=== PATIENT | male | born 1965 | race Caucasian/White ===

== ENCOUNTER 2017-05-03 04:48 | Emergency (ER) | payer MEDICARE ==
[~2017-05-03] VITALS: Ht 185.4 cm; Wt 76.7 kg
[2017-05-03 04:51] VITALS: BP 126/68
[2017-05-03] MEDS ORDERED: ONDANSETRON ODT 4 MG ONE (05:28)
[2017-05-03] MEDS ORDERED: HYDROmorphone 1 MG/ML, 1ML ONE (05:28)
[2017-05-03] MEDS ORDERED: HYDROmorphone 1 MG/ML, 1ML IM ONE (05:30)
[2017-05-03] MEDS ORDERED: ONDANSETRON ODT 4 MG PO ONE (05:30)
== END 2017-05-03 06:56 | disposition home or self-care (01) ==
LOC: ED 05:21
DX: S33.5XXA Sprain of ligaments of lumbar spine, initial encounter (principal); F17.200 Nicotine dependence, unspecified, uncomplicated; M54.16 Radiculopathy, lumbar region; W11.XXXA Fall on and from ladder, initial encounter; Y93.89 Activity, other specified; Y92.009 Unspecified place in unspecified non-institutional (private) residence as the place of occurrence of the external cause; Y99.9 Unspecified external cause status
CPT/HCPCS: 72110; 72190; 96372; 99284; J1170; Q0162

== ENCOUNTER 2018-03-28 14:50 | Emergency (ER) | payer MEDICAID, MEDICARE ==
[~2018-03-28] VITALS: Ht 188 cm; Wt 72.2 kg
[2018-03-28 14:52] VITALS: BP 128/76
[2018-03-28] MEDS ORDERED: LORazepam 1MG TABLET PO ONE (15:30)
[2018-03-28] MEDS ORDERED: LORazepam 1MG TABLET ONE (15:34)
== END 2018-03-28 15:49 | disposition home or self-care (01) ==
LOC: ED 15:15
DX: G89.29 Other chronic pain (principal); M54.5 Low back pain; Z76.0 Encounter for issue of repeat prescription
CPT/HCPCS: 99283

== ENCOUNTER 2019-05-05 20:01 | Emergency (ER) | payer MEDICARE ==
[~2019-05-05] VITALS: Ht 185.4 cm; Wt 78.3 kg
[2019-05-05 20:13] VITALS: BP 104/58
== END 2019-05-06 01:00 | disposition home or self-care (01) ==
LOC: ED 05-06 00:50
DX: M79.671 Pain in right foot (principal); B35.3 Tinea pedis; F17.210 Nicotine dependence, cigarettes, uncomplicated
CPT/HCPCS: 99283; 99406

== ENCOUNTER 2019-05-06 19:26 | Emergency (ER) | payer MEDICARE ==
[~2019-05-06] VITALS: Ht 185.4 cm; Wt 77.3 kg
[2019-05-06 19:50] VITALS: BP 123/73
== END 2019-05-06 20:14 | disposition left against medical advice (07) ==
LOC: ED 20:08
DX: M79.673 Pain in unspecified foot (principal); Z53.21 Procedure and treatment not carried out due to patient leaving prior to being seen by health care provider

== ENCOUNTER 2019-05-08 07:30 | Emergency (ER) | payer MEDICARE ==
[~2019-05-08] VITALS: Ht 185.4 cm; Wt 74.7 kg
[2019-05-08 07:32] VITALS: BP 115/62
== END 2019-05-08 09:39 | disposition home or self-care (01) ==
LOC: ED 08:39
DX: L03.032 Cellulitis of left toe (principal)
CPT/HCPCS: 10060; 36415; 80053; 84550; 85025; 99283